=== PATIENT | male | born 1990 | race Asian ===

== ENCOUNTER 2017-07-02 11:30 | Emergency (ER) | payer MEDICAID, OTHER ==
[~2017-07-02] VITALS: Ht 165.1 cm; Wt 65.9 kg
[~2017-07-02 11:30] MED LIST: [UNRECOGNIZED DRUG - REMARK]
[2017-07-02] MEDS ORDERED: HYDROCODONE/ACETAMINOPHEN 5-325 MG TABLET PO ONE (13:45)
[2017-07-02 15:15] VITALS: BP 122/78
[2017-07-02] MEDS ORDERED: PERTUSS(ACELL),DIPH,TET VAC/PF 0.5 ML VIAL IM ONE (15:30)
== END 2017-07-02 16:06 | disposition home or self-care (01) ==
LOC: EMS 11:39
DX: S82.831A Other fracture of upper and lower end of right fibula, initial encounter for closed fracture (principal); S82.301A Unspecified fracture of lower end of right tibia, initial encounter for closed fracture; S00.81XA Abrasion of other part of head, initial encounter; V49.40XA Driver injured in collision with unspecified motor vehicles in traffic accident, initial encounter; Y93.89 Activity, other specified; Y92.89 Other specified places as the place of occurrence of the external cause; Y99.8 Other external cause status
CPT/HCPCS: 29515; 90471; 90715; 99284

== ENCOUNTER 2017-07-11 16:49 | Emergency (ER) | payer SELFPAY ==
[~2017-07-11] VITALS: Ht 165.1 cm; Wt 65.9 kg
[2017-07-11] MEDS ORDERED: SULFAMETHOX/TRIMETH DS 800-160 MG/TABLET PO ONE (20:15)
[2017-07-11] MEDS ORDERED: CEPHALEXIN MONOHYDRATE 500 MG CAPSULE PO ONE (20:15)
[2017-07-11] MEDS ORDERED: IBUPROFEN 800 MG TABLET PO ONE (20:15)
[2017-07-11 22:22] VITALS: BP 120/76
== END 2017-07-11 22:23 | disposition home or self-care (01) ==
LOC: EMS 20:58
DX: S82.831D Other fracture of upper and lower end of right fibula, subsequent encounter for closed fracture with routine healing (principal); S90.521A Blister (nonthermal), right ankle, initial encounter; X58.XXXA Exposure to other specified factors, initial encounter; Y93.89 Activity, other specified; Y92.89 Other specified places as the place of occurrence of the external cause; Y99.8 Other external cause status
CPT/HCPCS: 29515; 99284